=== PATIENT | female | born 1990 | race Caucasian/White ===

== ENCOUNTER 2019-12-05 01:30 | Emergency (ER) | payer SELFPAY ==
[2019-12-05 01:36] VITALS: BP 106/74
--- NOTE | 2019-12-05 01:58 | ED ---
Laceration/Wound HPI - HPI Summary HPI Summary: This patient is a 29 year old female presenting to [facility] with a chief complaint of forehead laceration 3 hours ago. She states she accidentally hit her head against a shelf in the garage. She denies loss of consciousness. - History of Current Complaint Stated Complaint: HIT HEAD ON SHELF PER PT Time Seen by Provider: 12/05/19 01:52 Hx Obtained From: Patient Onset/Duration: Lasting Hours Pain Intensity: 8 Pain Scale Used: 0-10 Numeric Associated Signs & Symptoms: Pain - Allergy/Home Medications Allergies/Adverse Reactions: Allergies Allergy/AdvReac Type Severity Reaction Status Date / Time ibuprofen Allergy Hives Verified 12/05/19 01:32 PMH/Surg Hx/FS Hx/Imm Hx Cardiovascular History: Denies: Hx Coronary Artery Disease EENT History: Denies: Hx Deafness Infectious Disease History: No Infectious Disease History: Denies: Traveled Outside the [place] in Last 30 Days - Family History Known Family History: Negative: Seizure Disorder - Social History Lives: With Family Hx Substance Use: No Review of Systems Positive: Other - Laceration Negative: Syncope All Other Systems Reviewed And Are Negative: Yes Physical Exam - Summary Physical Exam Summary: Appearance: Well-appearing, Well-nourished, lying in bed comfortable Skin: Warm, dry, no obvious rash. 1.5 cm laceration just above the hairline of the scalp. Eyes: sclera anicteric, no conjunctival pallor ENT: mucous membranes moist Neck: deferred Respiratory: No signs of respiratory distress Cardiovascular: Appears well perfused, pulses are nml Abdomen: deferred Musculoskeletal: Moving all 4 extremities without obvious discomfort Neurological: Awake and alert, mentation is normal, speech is fluent and appropriate Psychiatric: affect is normal, does not appear anxious or depressed Triage Information Reviewed: Yes Vital Signs On Initial Exam: Initial Vitals Temp Pulse Resp BP Pulse Ox 98 F 82 18 106/74 98 12/05/19 01:34 12/05/19 01:34 12/05/19 01:34 12/05/19 01:34 12/05/19 01:34 Vital Signs Reviewed: Yes Procedures - Sedation Patient Received Moderate/Deep Sedation with Procedure: No - Laceration/Wound Repair 1 Location: head Description: Linear Closure: Skin Adhesive Diagnostics - Vital Signs Vital Signs Temp Pulse Resp BP Pulse Ox 12/05/19 01:34 98 F 82 18 106/74 98 - Laboratory Lab Statement: Any lab studies that have been ordered have been reviewed, and results considered in the medical decision making process. Laceration Repair Course/Dx - Course Course Of Treatment: This patient is a 29 year old female presenting to [facility] with a chief complaint of forehead laceration 3 hours ago. Physical exam reveals 1.5 cm laceration just above the hairline of the scalp. The laceration was closed by skin adhesive. Plan for discharge was discussed with the patient and she understands and agrees with this plan. - Clinical Impression Provider Diagnoses: Laceration Discharge ED - Sign-Out/Discharge Documenting (check all that apply): Patient Departure - Discharge - Discharge Plan Condition: Good Disposition: HOME Patient Education Materials: Skin Adhesive Care (ED) Referrals: No Primary Care Phys,[facility] [Primary Care Provider] - - Billing Disposition and Condition Condition: GOOD Disposition: Home - Attestation Statements Document Initiated by Vidhya: Yes Documenting Scribe: Bert Oconnor Provider For Whom Scribe is Documenting (Include Credential): Phong Hernandez MD Scribe Attestation: Bert Willams, jessed for Phong Hernandez MD on 12/05/19 at 2027. Scribe Documentation Reviewed: Yes Provider Attestation: The documentation as recorded by the Bert dominguez accurately reflects the service I personally performed and the decisions made by Phong santacruz MD Status of Scribe Document: Viewed
== END 2019-12-05 02:11 | disposition home or self-care (01) ==
LOC: ED 01:30
DX: S01.81XA Laceration without foreign body of other part of head, initial encounter (principal); W22.8XXA Striking against or struck by other objects, initial encounter; Y92.9 Unspecified place or not applicable; Z88.6 Allergy status to analgesic agent
CPT/HCPCS: 99281